=== PATIENT | male | born 1975 | race African-American/Black ===

== ENCOUNTER → 2016-07-28 10:02 | Emergency (ER) | payer OTHER ==
[~2016-07-28 10:02] MED LIST: AMOXICILLIN PO; BACTRIM DS TABL1 TA2 PO; HCTZ PO; IBUPROFEN PO; IBUPROFEN800 MG PO; VICODIN 5/1 TAB 5/50 PO; VICODIN 5/500 T1 TAB PO
== END | disposition home or self-care (01) ==
LOC: CED 10:02
DX: M79.671 Pain in right foot (principal); I10 Essential (primary) hypertension
CPT/HCPCS: 99282